=== PATIENT | female | born 1965 ===

== ENCOUNTER 2017-07-20 06:02 | Day surgery (SDC) | payer BC ==
[2017-07-13 12:08] VITALS: BMI 34.6
[2017-07-20] MEDS ORDERED: Lactated Ringer's 1,000 ML IV ONE (07:01)
[2017-07-20 07:20] LABS: SQUAMOUS EPITHIAL 8 /hpf (0-5); URINE BACTERIA RARE (<OCC); URINE BILIRUBIN NEGATIVE (NEGATIVE); URINE BLOOD NEGATIVE (NEGATIVE); URINE CLARITY CLOUDY (Clear); URINE COLOR YELLOW (YELLOW); URINE GLUCOSE (UA) NEG (Normal); URINE LEUKOCYTE ESTERASE LARGE Leu/uL (Negative); URINE PROTEIN NEGATIVE (NEGATIVE); URINE UROBILINOGEN 0.2-1.0 mg/dL (0.2-1.0)
[2017-07-20] MEDS ORDERED: Midazolam 2 MG/2 ML VIAL ONE (07:35)
[2017-07-20] MEDS ORDERED: Propofol 10 mg/ml Inj (20 ML) ONE (07:35)
[2017-07-20] MEDS ORDERED: HYDROmorphone 0.5 mg/0.5 ml ISec IVP PRN (08:11)
--- NOTE | 2017-07-20 08:12 | CP.SDSHP ---
Same Day Surgery [facility] & [facility] - Allergies Allergies: Allergies amoxicillin trihydrate [From Augmentin] Allergy (Verified 10/18/15 12:14) RASH chocolate flavor Allergy (Verified 07/13/17 11:21) RASH potassium clavulanate [From Augmentin] Allergy (Verified 10/18/15 12:14) RASH - Physical Exam Vital Signs: Vital Signs 07/20/17 07/20/17 06:30 06:33 Temperature 98.6 F Pulse Rate 81 81 Respiratory 20 Rate Blood Pressure 150/100 H O2 Sat by Pulse 97 Oximetry Neuro: WNL Heart: WNL Lungs: WNL GI: WNL - {Optional Preform as Required} Breast: WNL Abdomen: WNL STATION ENGINEER: Other : WNL Ortho: WNL ENT: WNL - Impression Impression: post menopausal bleeding Pt. Evaluated Today:Candidate for Anesthesia & Procedure: Yes - Date & Time Date: 07/20/17 Time: 07:40 Short Stay Discharge - Short Stay Discharge Admitting Diagnosis/Reason for Visit: N95.0 Disposition: HOME/ ROUTINE Referrals: Casey Cabrera MD [Primary Care Provider] -
[2017-07-20] MEDS ORDERED: Lactated Ringer's 500 ML IV ONE (08:13)
--- NOTE | 2017-07-20 08:14 | CP.SDSHP ---
Same Day Surgery [facility] & P - Allergies Allergies: Allergies amoxicillin trihydrate [From Augmentin] Allergy (Verified 10/18/15 12:14) RASH chocolate flavor Allergy (Verified 07/13/17 11:21) RASH potassium clavulanate [From Augmentin] Allergy (Verified 10/18/15 12:14) RASH - Physical Exam Vital Signs: Vital Signs 07/20/17 07/20/17 06:30 06:33 Temperature 98.6 F Pulse Rate 81 81 Respiratory 20 Rate Blood Pressure 150/100 H O2 Sat by Pulse 97 Oximetry Short Stay Discharge - Short Stay Discharge Admitting Diagnosis/Reason for Visit: N95.0 Referrals: Casey Cabrera MD [Primary Care Provider] -
[2017-07-20] MEDS ORDERED: Lactated Ringer's 1,000 ML IV SCH (08:15)
--- NOTE | 2017-07-20 08:19 | CP.SDSHP ---
Same Day Surgery [facility] & P - Allergies Allergies: Allergies amoxicillin trihydrate [From Augmentin] Allergy (Verified 10/18/15 12:14) RASH chocolate flavor Allergy (Verified 07/13/17 11:21) RASH potassium clavulanate [From Augmentin] Allergy (Verified 10/18/15 12:14) RASH - Physical Exam Vital Signs: Vital Signs 07/20/17 07/20/17 06:30 06:33 Temperature 98.6 F Pulse Rate 81 81 Respiratory 20 Rate Blood Pressure 150/100 H O2 Sat by Pulse 97 Oximetry Short Stay Discharge - Short Stay Discharge Admitting Diagnosis/Reason for Visit: N95.0 Referrals: Casey Cabrera MD [Primary Care Provider] - Follow-up: TO BE SEEN IN OFFICE IN 2 WEEKS CALL IF EXCESSIVE BLEEDING OR INFECTION Progress Note/Discharge Note with Instructions: TO BE SEEN IN OFFICE IN 2 WEEKS
[2017-07-20 08:22] LABS: PARTIAL THROMBOPLASTIN TIME 32.3 Seconds (25.6-37.1); PROTHROMBIN TIME 10.5 Seconds (9.8-13.1)
--- NOTE | 2017-07-20 08:26 | PCM.OP ---
Operative Report - Operative Report Date of Surgery/Procedure: 07/20/17 Time of Surgery/Procedure: 08:00 Surgeon: ROSARIO Anesthesia/Sedation: GENERAL Pre-Operative Diagnosis: POST MENOPAUSAL BLEEDING Post-Operative Diagnosis: PURULENT ENDOMETRIAL FLUID MODERATE AMOUNT OF ENDOMETRIAL TISSUE Indication for Surgery: POST MENOPAUSAL BLEDING Operative Findings: IRREGULAR CAVITY FROM FIBROIDS Procedure/Operation Description: D&C Estimated Blood Loss: 25 CCS Blood Replaced: NONE Sponge/Instrument Count: CORRECT Drains: NONE Complications: NONE Specimen: ECC & EMC Discharge & Condition: VERY STABLE
[2017-07-20 08:35] VITALS: RESP 18
[2017-07-20 10:15] VITALS: BP 147/78; PULSE 86; TEMP 97.7; O2SAT 96
--- NOTE | 2017-07-23 08:54 | OP ---
PROCEDURE DATE: 07/20/2017 PREOPERATIVE DIAGNOSES: Postmenopausal bleeding with fibroid uterus, status post Novasure global endometrial ablation in 2009. POSTOPERATIVE DIAGNOSES: Purulent discharge from the cervix and the uterine cavity, initially endocervical curettage was done followed by cervical uterine sounded at 7 cm, cervix was then dilated to #20 Crabtree dilator and endometrial curettage was done, and moderate amount of endometrial tissue was obtained. SURGEON: Omar Forrest MD ANESTHESIA ADMINISTERED BY: Dr. Codey Vicente. COMPLICATIONS: None. DRAINS: None. : None. : Lactate Ringer's at 150 mL an hour. CONDITION OF THE PATIENT: Stable. DESCRIPTION OF PROCEDURE: After proper workup, the patient was taken to the OR. She was prepped and draped in aseptic manner in usual lithotomy position. Initially, urinary bladder was emptied by aseptic catheterization. On examination under anesthesia, uterus was anteverted to about 6-8 week size. Adnexa was negative. A weighted speculum was then inserted inside the vagina. The cervix was exposed. Anterior lip of the cervix was . Initially, the cervix was dilated with Crabtree dilator, but we started dilating the cervix purulent material. Pus came out at the cervical canal. Cervix was anyway dilated with #20 Crabtree dilator, initially with #0 cervical cavity was done and this was then as in the cervical curettage. This was then followed by uterine endometrial curettage with #1 Dockery curette, moderate amount of tissue was obtained and this was sent for pathology, labelled as endometrial curettage. The cavity was irregular due to fibroid uterus. Complete curettage of anterior wall, posterior wall, lateral wall, and fundal portion of the uterus was completely curetted out. The estimated blood loss was about 25 mL. All the instruments were removed from the patient. The instrument count and sponge count was found as correct. The patient's vital signs have been stable. She was then taken from OR table, put on the recovery room bed and she was sent to the recovery room in good condition. Omar Forrest MD
== END 2017-07-20 10:57 | disposition home or self-care (01) ==
LOC: H.OPSURG 06:02
PROVIDERS: ATTEND Obstetrics & Gynecology
DX: N95.0 Postmenopausal bleeding (principal); E11.9 Type 2 diabetes mellitus without complications; E78.5 Hyperlipidemia, unspecified; I10 Essential (primary) hypertension; D25.9 Leiomyoma of uterus, unspecified; Z88.0 Allergy status to penicillin; Z78.0 Asymptomatic menopausal state
CPT/HCPCS: 36415; 58120; 81003; 82948; 85610; 85730; 86850; 86900; 88305; J1885; J2250; J2704; J3010; J7120